=== PATIENT | female | born 1960 | race Caucasian/White ===

== ENCOUNTER → 2016-07-16 | Outpatient (CLI) | payer OTHER ==
[~2016-07-16] MED LIST: ADDERALL 30 MG30 MG PO; IBUPROFEN 200200 M1 PO; LIPITOR20 MG PO; PAXIL20 MG PO
== END ==
LOC: CAT 15:23
DX: R10.9 Unspecified abdominal pain (principal)

== ENCOUNTER → 2016-09-17 | Outpatient (CLI) | payer OTHER | LOC: CAT 11:35 | DX: R59.1 Generalized enlarged lymph nodes (principal); M54.2 Cervicalgia ==

== ENCOUNTER → 2016-12-09 | Outpatient (CLI) | payer OTHER ==
[2016-12-09 10:56] LABS: ABSOLUTE NEUTROPHILS 4.4 thou/uL (1.4-8.2); BASOPHILS 0.3 % (0.0-2.0); EOSINOPHILS 1.6 % (0.0-3.0); HEMOGLOBIN 13.1 gm/dL (12.0-15.0); LYMPHOCYTES 33.1 % (24.0-44.0); MCH 29.7 pg (26.0-34.0); MCHC 32.8 g/dL (28.0-37.0); MCV 90.5 fL (80.0-100.0); MONOCYTES 6.5 % (1.0-8.0); PLATELET COUNT 240 thou/uL (150-400); POLYS 58.5 % (36.0-66.0); RBC 4.42 mil/uL (4.20-5.00); RDW 13.5 % (10.5-14.5); WBC 7.5 thou/uL (4.0-11.0)
[2016-12-09 10:57] LABS: MANUAL DIFF NO
[2016-12-09 11:10] LABS: ALBUMIN 3.7 g/dL (3.4-5.0); CALCIUM 8.7 mg/dL (8.5-10.1); CREATININE 0.6 mg/dL (0.6-1.0); POTASSIUM 4.2 mmol/L (3.5-5.1); TOTAL BILIRUBIN 0.3 mg/dL (<0.1-1.0); TOTAL PROTEIN 7.6 g/dL (6.4-8.2)
== END ==
LOC: LABMALL 09:07
PROVIDERS: Internal Medicine
DX: R10.9 Unspecified abdominal pain (principal)

== ENCOUNTER 2017-01-28 16:24 | Emergency (ER) | payer OTHER ==
[~2017-01-28] VITALS: Ht 157.5 cm; Wt 72.6 kg
--- NOTE | ~2017-01-28 | EKG ---
[address] [place] [place] [address] ELECTROCARDIOGRAM REPORT Name: GEORGINA RICE [id number] Admission: 01/28/17 Attend Phys: Discharge: 01/28/17 Date of : 64 Report #: [id number] THIS REPORT FOR: //name// [facility] ED Test Date: 2017-01-28 Test Time: 18:52:29 Pat Name: GEORGINA RICE Department: Room: Gender: F Fisher Eel: STELLA : 1960 Requested By: Roel Maldonado Order Number: [id number] MD: Lucian Demarco Measurements Intervals [place] Rate: 74 P: 15 WA: 143 QRS: -54 QRSD: 98 T: 41 QT: 394 QTc: 438 Interpretive Statements Sinus rhythm Abnormal R-wave progression, early transition Inferior infarct, old No previous ECG available for comparison Electronically Signed On 01-29-2017 14:15:41 CDT by Lucian Demarco [email or web address] <ELECTRONICALLY SIGNED> By: Lucian Demarco MD 01/29/17 1415 185 1852 Lucian Demarco MD /KENNETH
[2017-01-28 18:04] LABS: ABSOLUTE NEUTROPHILS 6.7 thou/uL (1.4-8.2); BASOPHILS 0.5 % (0.0-2.0); EOSINOPHILS 1.1 % (0.0-3.0); HEMATOCRIT 38.4 % (37.0-47.0); HEMOGLOBIN 13.1 gm/dL (12.0-15.0); LYMPHOCYTES 26.4 % (24.0-44.0); MCH 30.5 pg (26.0-34.0); MCHC 34.2 g/dL (28.0-37.0); MCV 89.2 fL (80.0-100.0); MONOCYTES 7.7 % (1.0-8.0); PLATELET COUNT 254 thou/uL (150-400); POLYS 64.3 % (36.0-66.0); RBC 4.31 mil/uL (4.20-5.00); RDW 13.6 % (10.5-14.5); WBC 10.4 thou/uL (4.0-11.0)
[2017-01-28 18:05] LABS: MANUAL DIFF NO
[2017-01-28 18:06] LABS: ANION GAP 9 mmol/L (7-16); BUN 17 mg/dL (7-18); CALCIUM 8.9 mg/dL (8.5-10.1); CHLORIDE 104 mmol/L (98-107); CO2 26 mmol/L (21-32); CREATININE 0.7 mg/dL (0.6-1.0); GLUCOSE 89 mg/dL (74-106); POTASSIUM 3.7 mmol/L (3.5-5.1); SODIUM 139 mmol/L (136-145)
[2017-01-28 18:19] LABS: NT-PRO BRAIN NAT PEPTIDE 28 pg/mL (<300); TROPONIN-I < 0.04 ng/mL (<0.04-0.07)
[2017-01-28 19:19] VITALS: BP 116/69
== END 2017-01-28 19:21 | disposition home or self-care (01) ==
LOC: ER 16:24
PROVIDERS: Emergency Medicine
DX: R06.02 Shortness of breath (principal); I10 Essential (primary) hypertension; E78.00 Pure hypercholesterolemia, unspecified; F10.99 Alcohol use, unspecified with unspecified alcohol-induced disorder; Z98.890 Other specified postprocedural states

== ENCOUNTER → 2017-03-03 | Outpatient (CLI) | payer OTHER | LOC: LABMALL 15:36 | DX: R94.6 Abnormal results of thyroid function studies (principal) ==

== ENCOUNTER 2017-08-18 11:44 | Emergency (ER) | payer OTHER ==
[~2017-08-18] VITALS: Ht 160 cm; Wt 108.0 kg
--- NOTE | ~2017-08-18 | EKG ---
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 : 1960 Requested By: Chris Blackmon Order Number: [id number] MD: Primitivo White Measurements Intervals [place] Rate: 60 P: -15 CA: 129 QRS: -46 QRSD: 100 T: 44 QT: 417 QTc: 417 Interpretive Statements Sinus rhythm Abnormal R-wave progression, late transition Inferior infarct, old Compared to ECG 01/28/2017 18:52:29 No significant changes Electronically Signed On 08-19-2017 8:20:53 MEDICAL ASSISTANT PRN by Primitivo White [email or web address] <ELECTRONICALLY SIGNED> By: Primitivo White MD, [facility] 08/19/17 0820 132 21 Primitivo White MD, [facility] /EPI
[2017-08-18 12:16] LABS: HEMATOCRIT 39.8 % (37.0-47.0); HEMOGLOBIN 13.5 gm/dL (12.0-15.0); MCH 30.4 pg (26.0-34.0); MCHC 33.8 g/dL (28.0-37.0); MCV 89.9 fL (80.0-100.0); RBC 4.43 mil/uL (4.20-5.00); RDW 13.6 % (10.5-14.5); WBC 10.4 thou/uL (4.0-11.0)
[2017-08-18 12:21] LABS: ANION GAP 5 mmol/L (7-16); BUN 22 mg/dL (7-18); CALCIUM 8.8 mg/dL (8.5-10.1); CHLORIDE 104 mmol/L (98-107); CO2 29 mmol/L (21-32); CREATININE 0.8 mg/dL (0.6-1.0); GLUCOSE 148 mg/dL (74-106); SODIUM 138 mmol/L (136-145)
[2017-08-18 12:29] LABS: APTT 26.1 Seconds (24.5-32.8); PROTIME 9.9 Seconds (9.3-11.4)
[2017-08-18 12:30] LABS: TROPONIN-I < 0.04 ng/mL (<0.06)
[2017-08-18] MEDS ORDERED: LEXAPRO 10 MG T10 M2 PO (13:59)
[2017-08-18] MEDS ORDERED: BYSTOLIC 5 MG5 M1 PO (13:59)
[2017-08-18] MEDS ORDERED: LIPITOR 20 MG T20 M1 PO (13:59)
[2017-08-18] MEDS ORDERED: NEXIUM40 MG PO (14:00)
[2017-08-18] MEDS ORDERED: CLONAZEPAM 0.50.5 M1 PO (14:00)
== END 2017-08-18 13:55 | disposition home or self-care (01) ==
LOC: ER 11:44
PROVIDERS: Emergency Medicine
DX: R41.0 Disorientation, unspecified (principal); I10 Essential (primary) hypertension; Z87.891 Personal history of nicotine dependence

== ENCOUNTER → 2017-10-25 | Outpatient (CLI) | payer OTHER ==
[~2017-10-25] MED LIST changes: +BYSTOLIC 5 MG5 M1 PO; +CLONAZEPAM 0.50.5 M1 PO; +LEXAPRO 10 MG T10 M2 PO; +LIPITOR 20 MG T20 M1 PO; +NEXIUM40 MG PO
--- NOTE | ~2017-10-25 | EEG ---
Formerly [facility] [place] [address] ELECTROENCEPHALOGRAM Name: DWAYNEGEORGINA Ildefonso Room #: REG [facility].#: [id number] Admission: 10/25/17 Attend Phys: Junior Cloud MD Discharge: Date of : 64 Report #: [id number] THIS REPORT FOR: //name// CC: Junior Flood DATE OF SERVICE: 10/25/2017 This patient is being evaluated for headaches. EEG was done by placing the electrode by standard 10-20 system of electrode placement. Both referential and sequential montages were used for recording. Background activity in this patient's EEG is about 11 Hz and 40 microvolts. It is a symmetrical activity. The patient goes to sleep and that is associated with bilaterally symmetrical sleep spindle and vertex sharp waves. Throughout the records, no active epileptiform activity was noticed. IMPRESSION: This patient's EEG is within normal limit. Thank you very much for this referral. <ELECTRONICALLY SIGNED> By: Junior Cloud MD 10/25/17 2209 [id number] 55 Junior Cloud MD /nt
== END ==
LOC: NEURO 06:34
DX: R51 Headache (principal)

== ENCOUNTER → 2018-02-21 | Outpatient (CLI) | payer OTHER | LOC: CAT 11:06 | DX: Z13.6 Encounter for screening for cardiovascular disorders (principal); E78.00 Pure hypercholesterolemia, unspecified ==

== ENCOUNTER → 2020-01-31 | Outpatient (CLI) | payer OTHER | LOC: BC 12:32 | PROVIDERS: ATTEND Neuromusculoskeletal Medicine & OMM | DX: Z12.31 Encounter for screening mammogram for malignant neoplasm of breast (principal) ==

== ENCOUNTER → 2020-02-26 | Outpatient (CLI) | payer OTHER | LOC: SJCVC 07:21 → SJCVCIMAG 07:21 → SJCVC 11:12 | PROVIDERS: ATTEND Internal Medicine Cardiovascular Disease | DX: Z01.810 Encounter for preprocedural cardiovascular examination (principal); I49.3 Ventricular premature depolarization; R00.0 Tachycardia, unspecified; Z78.0 Asymptomatic menopausal state; Z79.899 Other long term (current) drug therapy; Z87.891 Personal history of nicotine dependence; Z82.49 Family history of ischemic heart disease and other diseases of the circulatory system ==

== ENCOUNTER → 2020-10-24 | Outpatient (CLI) | payer OTHER | LOC: ULTRA 14:02 | PROVIDERS: ATTEND Nurse Practitioner | DX: N63.20 Unspecified lump in the left breast, unspecified quadrant (principal); N64.4 Mastodynia; R92.8 Other abnormal and inconclusive findings on diagnostic imaging of breast ==

== ENCOUNTER → 2020-10-30 | Outpatient (CLI) | payer OTHER | LOC: RAD 13:20 | PROVIDERS: ATTEND Nurse Practitioner | DX: N64.89 Other specified disorders of breast (principal); R92.2 Inconclusive mammogram ==

== ENCOUNTER → 2020-12-11 | Outpatient (CLI) | payer OTHER | LOC: ULTRA 10:45 | PROVIDERS: ATTEND Nurse Practitioner | DX: M25.561 Pain in right knee (principal); M79.89 Other specified soft tissue disorders ==

== ENCOUNTER → 2021-02-19 | Outpatient (CLI) | payer OTHER ==
[2021-02-19 13:05] LABS: ABSOLUTE NEUTROPHILS 4.2 thou/uL (1.4-8.2); BASOPHILS 0.5 % (0.0-2.0); EOSINOPHILS 1.6 % (0.0-3.0); HEMATOCRIT 41.8 % (37.0-47.0); LYMPHOCYTES 29.9 % (24.0-44.0); MCH 29.9 pg (26.0-34.0); MCHC 33.4 g/dL (28.0-37.0); MCV 89.4 fL (80.0-100.0); MONOCYTES 7.4 % (1.0-8.0); PLATELET COUNT 240 thou/uL (150-400); POLYS 60.6 % (36.0-66.0); RBC 4.68 mil/uL (4.20-5.00); RDW 14.2 % (10.5-14.5)
[2021-02-19 13:18] LABS: URINE BILIRUBIN NEGATIVE (Negative); URINE BLOOD TRACE (Negative); URINE CLARITY CLEAR; URINE COLOR YELLOW; URINE GLUCOSE-RANDOM* NEGATIVE (Negative); URINE KETONES TRACE (Negative); URINE LEUKOCYTES NEGATIVE (Negative); URINE NITRITE NEGATIVE (Negative); URINE PROTEIN (DIPSTICK) NEGATIVE (Negative); URINE UROBILINOGEN 0.2 E.U./dl (0.2-1.0)
[2021-02-19 13:26] LABS: ALBUMIN 3.7 g/dL (3.4-5.0); CALCIUM 8.4 mg/dL (8.5-10.1); CREATININE 0.7 mg/dL (0.6-1.0); POTASSIUM 4.4 mmol/L (3.5-5.1); TOTAL BILIRUBIN 0.4 mg/dL (0.2-1.0); TOTAL PROTEIN 7.3 g/dL (6.4-8.2)
== END ==
LOC: LAB 12:30
PROVIDERS: ATTEND Nurse Practitioner
DX: Z00.00 Encounter for general adult medical examination without abnormal findings (principal)

== ENCOUNTER → 2021-03-31 | Outpatient (CLI) | payer OTHER | LOC: BC 12:48 | PROVIDERS: ATTEND Nurse Practitioner | DX: Z12.31 Encounter for screening mammogram for malignant neoplasm of breast (principal) ==

== ENCOUNTER → 2021-04-06 | Outpatient (CLI) | payer OTHER | LOC: CAT 12:13 | PROVIDERS: ATTEND Internal Medicine Cardiovascular Disease | DX: Z13.6 Encounter for screening for cardiovascular disorders (principal); I25.10 Atherosclerotic heart disease of native coronary artery without angina pectoris; E78.00 Pure hypercholesterolemia, unspecified ==